=== PATIENT | female | born 1945 | race Caucasian/White ===

== ENCOUNTER 2017-03-13 18:08 | Inpatient (IN) | payer MEDICARE, OTHER ==
[~2017-03-13 18:08] MED LIST: COMBIVENT1 PUFF INH; LISINOPRIL; LISINOPRIL10 MG PO; NORCO 5/3251 TAB PO; PRAVASTATIN SOD40 MG PO; STATIN; TYLENOL325 M2 PO
[2017-03-13 18:52] LABS: BASO % 0.4 % (0-2); EOS % 1.4 % (0-7); EOSINOPHIL ABSOLUTE COUNT 0.1 tho/cmm (0.0-0.7); HCT-HEMATOCRIT 41.7 % (34.0-49.0); HGB-HEMOGLOBIN 14.1 gm/dl (12.0-15.5); IMMATURE GRANULOCYTES ABSOLUTE 0.01 tho/cmm (0-0.03); IMMATURE GRANULOCYTES PERCENT 0.1 % (0-0.3); LYMPH ABSOLUTE COUNT 2.6 tho/cmm (0.8-4.5); MCH (MEAN CORPUSCULAR HGB) 29.8 pg (28.0-32.0); MCHC MEAN CORPUSCULAR HGB CONC 33.8 % (32.0-36.0); MCV (MEAN CELL VOLUME) 88.2 fl (82.0-96.0); MEAN PLATELET VOLUME 9.2 cmc (9.4-12.4); MONO % 6.6 % (0-12); MONOCYTE ABSOLUTE COUNT 0.5 tho/cmm (0.0-1.2); NEUTROPHIL ABSOLUTE COUNT 4.8 tho/cmm (1.6-8.0); NEUTROPHIL-AUTOMATED 4.8 tho/cmm (1.6-8.0); NEUTROPHILS % 59.5 % (40-80); PLATELET COUNT 245 tho/cmm (150-450); RED BLOOD COUNT 4.73 mil/cmm (4.00-5.20); RED CELL DISTRIBUTION WIDTH 13.3 % (12.4-16.4)
[2017-03-13 19:06] LABS: ALKALINE PHOSPHATASE 84 U/L (33-138); ALT/SGPT 31 U/L (12-78); ANION GAP 13 mmol/L (0-20); AST/SGOT 23 U/L (10-40); BILIRUBIN,TOTAL 0.6 mg/dl (0-1.5); BLOOD UREA NITROGEN 21 mg/dl (6-24); C-REACTIVE PROTEIN <0.3 mg/dl (0-0.9); CALCIUM 9.3 mg/dl (8.5-10.5); CARBON DIOXIDE-VENOUS 24 mmol/L (22-32); CHLORIDE 103 mmol/l (96-110); CREATININE 0.75 mg/dl (0.50-1.10); GLUCOSE 120 mg/dL (70-110); LIPASE 141 U/L (73-393); POTASSIUM 3.6 mmol/L (3.7-5.1); SODIUM 136 mmol/L (135-145); eGFR VALUE FOR BLACK >90 mL/Min
[2017-03-13 21:38] LABS: URINE BILIRUBIN NEGATIVE (NEG); URINE BLOOD NEGATIVE (NEG); URINE GLUCOSE (UA) NEGATIVE (NEG); URINE KETONE MODERATE (NEG); URINE LEUKOCYTE ESTERASE NEGATIVE (NEG); URINE NITRITE NEGATIVE (NEG); URINE PROTEIN NEGATIVE (NEG)
[2017-03-13 21:40] LABS: URINE APPEARANCE CLEAR; URINE COLOR YELLOW
[2017-03-14 05:31] LABS: INR 1.1 INR (0.9-1.1); PROTHROMBIN TIME 12.5 SECONDS (9.0-13.6)
[2017-03-14 05:33] LABS: BASO % 0.1 % (0-2); HCT-HEMATOCRIT 42.4 % (34.0-49.0); HGB-HEMOGLOBIN 14.2 gm/dl (12.0-15.5); IMMATURE GRANULOCYTES ABSOLUTE 0.02 tho/cmm (0-0.03); IMMATURE GRANULOCYTES PERCENT 0.2 % (0-0.3); LYMPH % 9.1 % (20-45); LYMPH ABSOLUTE COUNT 0.9 tho/cmm (0.8-4.5); MCH (MEAN CORPUSCULAR HGB) 29.7 pg (28.0-32.0); MCHC MEAN CORPUSCULAR HGB CONC 33.5 % (32.0-36.0); MCV (MEAN CELL VOLUME) 88.7 fl (82.0-96.0); MEAN PLATELET VOLUME 9.6 cmc (9.4-12.4); MONO % 5.6 % (0-12); MONOCYTE ABSOLUTE COUNT 0.6 tho/cmm (0.0-1.2); NEUTROPHIL ABSOLUTE COUNT 8.6 tho/cmm (1.6-8.0); NEUTROPHIL-AUTOMATED 8.6 tho/cmm (1.6-8.0); PLATELET COUNT 223 tho/cmm (150-450); RED BLOOD COUNT 4.78 mil/cmm (4.00-5.20); RED CELL DISTRIBUTION WIDTH 13.6 % (12.4-16.4); WHITE BLOOD COUNT 10.1 tho/cmm (4.0-10.0)
[2017-03-14 05:38] LABS: ANION GAP 11 mmol/L (0-20); BLOOD UREA NITROGEN 18 mg/dl (6-24); CALCIUM 7.9 mg/dl (8.5-10.5); CARBON DIOXIDE-VENOUS 23 mmol/L (22-32); CHLORIDE 108 mmol/l (96-110); CREATININE 0.56 mg/dl (0.50-1.10); GLUCOSE 117 mg/dL (70-110); POTASSIUM 4.1 mmol/L (3.7-5.1); SODIUM 138 mmol/L (135-145); eGFR VALUE FOR BLACK >90 mL/Min
[2017-03-14] MEDS ORDERED: RESTASIS0.4 ML/EA EACH EYE (07:34)
[2017-03-14] MEDS ORDERED: INDOMETHACIN50 M1 PO (07:35)
[2017-03-14] MEDS ORDERED: VITAMIN B-12250 MC2 PO (07:36)
[2017-03-14] MEDS ORDERED: ASPIRIN81 M1 PO (07:36)
[2017-03-14] MEDS ORDERED: PRENATAL-U CAPS1 CAP PO (07:37)
[2017-03-14] MEDS ORDERED: VITAMIN D31000 UNI3 PO (07:37)
[2017-03-14] MEDS ORDERED: ALIGN4 M1 PO (07:38)
[2017-03-14] MEDS ORDERED: FISH OIL300 M1 PO (07:38)
[2017-03-14] MEDS ORDERED: LIVALO2 M1 PO (07:39)
[2017-03-14] MEDS ORDERED: AMLODIPINE BESYL5 MG PO (07:40)
--- NOTE | 2017-03-14 20:18 | NUR ---
VIRTUAL CARE NOTE: ASESSMENT DEFERRED. PT. SLEEPING.
[2017-03-15 11:01] LABS: ANION GAP 14 mmol/L (0-20); BLOOD UREA NITROGEN 15 mg/dl (6-24); CALCIUM 8.6 mg/dl (8.5-10.5); CARBON DIOXIDE-VENOUS 24 mmol/L (22-32); CHLORIDE 106 mmol/l (96-110); CREATININE 0.56 mg/dl (0.50-1.10); GLUCOSE 112 mg/dL (70-110); MAGNESIUM 1.9 mg/dl (1.8-2.6); POTASSIUM 3.7 mmol/L (3.7-5.1); SODIUM 140 mmol/L (135-145); eGFR VALUE FOR BLACK >90 mL/Min
--- NOTE | 2017-03-15 21:05 | NUR ---
VIRTUAL CARE NOTE: REVIEWED PLAN OF CARE WITH PT. PT DENIES ANY QUESTIONS OR CONCERNS AT THIS TIME. PLAN FOR OR AT 0900. PT ALREADY SIGNED CONSENT. NG IN PLACE, HOOKED UP TO SUCTION. PT STATES TOOK A LOT OF PRESSURE OFF. ENCOURAGED FALL PRECAUTIONS AND TO NOTIFY STAFF WITH ANY NEEDS. PT V/U. WILL CONTINUE WITH CHART REVIEW.
[2017-03-16 05:20] LABS: BASO % 0.1 % (0-2); EOS % 0.3 % (0-7); HCT-HEMATOCRIT 34.5 % (34.0-49.0); HGB-HEMOGLOBIN 11.4 gm/dl (12.0-15.5); IMMATURE GRANULOCYTES ABSOLUTE 0.03 tho/cmm (0-0.03); IMMATURE GRANULOCYTES PERCENT 0.3 % (0-0.3); LYMPH % 13.4 % (20-45); LYMPH ABSOLUTE COUNT 1.3 tho/cmm (0.8-4.5); MCH (MEAN CORPUSCULAR HGB) 29.4 pg (28.0-32.0); MCV (MEAN CELL VOLUME) 88.9 fl (82.0-96.0); MEAN PLATELET VOLUME 9.4 cmc (9.4-12.4); NEUTROPHIL ABSOLUTE COUNT 7.6 tho/cmm (1.6-8.0); NEUTROPHIL-AUTOMATED 7.6 tho/cmm (1.6-8.0); NEUTROPHILS % 75.9 % (40-80); PLATELET COUNT 188 tho/cmm (150-450); RED BLOOD COUNT 3.88 mil/cmm (4.00-5.20); RED CELL DISTRIBUTION WIDTH 13.7 % (12.4-16.4)
[2017-03-16 05:26] LABS: ANION GAP 11 mmol/L (0-20); BLOOD UREA NITROGEN 15 mg/dl (6-24); CALCIUM 8.2 mg/dl (8.5-10.5); CARBON DIOXIDE-VENOUS 28 mmol/L (22-32); CHLORIDE 103 mmol/l (96-110); CREATININE 0.48 mg/dl (0.50-1.10); GLUCOSE 96 mg/dL (70-110); MAGNESIUM 1.9 mg/dl (1.8-2.6); POTASSIUM 3.1 mmol/L (3.7-5.1); SODIUM 139 mmol/L (135-145); eGFR VALUE FOR BLACK >90 mL/Min
[2017-03-17 05:26] LABS: BASO % 0.1 % (0-2); EOS % 0.2 % (0-7); HCT-HEMATOCRIT 31.5 % (34.0-49.0); HGB-HEMOGLOBIN 10.5 gm/dl (12.0-15.5); IMMATURE GRANULOCYTES ABSOLUTE 0.01 tho/cmm (0-0.03); IMMATURE GRANULOCYTES PERCENT 0.1 % (0-0.3); LYMPH % 14.9 % (20-45); LYMPH ABSOLUTE COUNT 1.3 tho/cmm (0.8-4.5); MCH (MEAN CORPUSCULAR HGB) 29.7 pg (28.0-32.0); MCHC MEAN CORPUSCULAR HGB CONC 33.3 % (32.0-36.0); MCV (MEAN CELL VOLUME) 89.2 fl (82.0-96.0); MEAN PLATELET VOLUME 9.4 cmc (9.4-12.4); MONO % 10.9 % (0-12); NEUTROPHIL ABSOLUTE COUNT 6.5 tho/cmm (1.6-8.0); NEUTROPHIL-AUTOMATED 6.5 tho/cmm (1.6-8.0); NEUTROPHILS % 73.8 % (40-80); PLATELET COUNT 181 tho/cmm (150-450); RED BLOOD COUNT 3.53 mil/cmm (4.00-5.20); RED CELL DISTRIBUTION WIDTH 13.7 % (12.4-16.4); WHITE BLOOD COUNT 8.8 tho/cmm (4.0-10.0)
[2017-03-17 05:41] LABS: ANION GAP 11 mmol/L (0-20); BLOOD UREA NITROGEN 16 mg/dl (6-24); CALCIUM 8.5 mg/dl (8.5-10.5); CARBON DIOXIDE-VENOUS 25 mmol/L (22-32); CHLORIDE 108 mmol/l (96-110); CREATININE 0.49 mg/dl (0.50-1.10); GLUCOSE 124 mg/dL (70-110); MAGNESIUM 1.9 mg/dl (1.8-2.6); SODIUM 140 mmol/L (135-145); eGFR VALUE FOR BLACK >90 mL/Min
[2017-03-17 05:49] LABS: POTASSIUM 4.3 mmol/L (3.7-5.1)
[2017-03-17] MEDS ORDERED: MIRALAX17 G2 PO (10:48)
[2017-03-17] MEDS ORDERED: SENNA S TABLET1 EACH PO (10:49)
[2017-03-17] MEDS ORDERED: HOLD THE FOLLOWING: (10:50)
[2017-03-17] MEDS ORDERED: NORCO 5-325 TA1 EACH PO (13:49)
== END 2017-03-17 14:35 | DRG 337 ==
LOC: EDMED 18:08 → EMR2 21:22 → 5WD 23:25 → ORW 03-16 08:55 → PACU 03-16 10:15 → 5WD 03-16 11:40
PROVIDERS: Internal Medicine Cardiovascular Disease; Nurse Practitioner Family; ADMIT Internal Medicine
PROC: 0DNS4ZZ (ICD-10-PCS; principal; 2017-03-13)
DX: K46.0 Unspecified abdominal hernia with obstruction, without gangrene (principal); I10 Essential (primary) hypertension; R73.9 Hyperglycemia, unspecified; K76.9 Liver disease, unspecified; K86.9 Disease of pancreas, unspecified; E78.5 Hyperlipidemia, unspecified; Z87.891 Personal history of nicotine dependence; K29.80 Duodenitis without bleeding
CPT/HCPCS: J0690; J0780; J1170; J2270; J2405; J3480; J7030; Q9967